=== PATIENT | female | born 2000 | race Caucasian/White ===

== ENCOUNTER 2024-03-14 17:00 | Day surgery (SDC) | payer OTHER ==
[2024-03-14 18:11] VITALS: BMI 41.0
[2024-03-14] MEDS: Ondansetron PF 4 MG/2 ML Vial IVP SCH (18:17)
[2024-03-14] MEDS: Dextrose 5%-Lactated Ringers 1,000 ML IV SCH (18:18)
== END 2024-03-14 19:30 | disposition home or self-care (01) ==
LOC: CSHLD/OP 17:00
PROVIDERS: ATTEND Family Medicine
DX: O21.2 Late vomiting of pregnancy (principal); O99.891 Other specified diseases and conditions complicating pregnancy; R19.7 Diarrhea, unspecified; Z79.82 Long term (current) use of aspirin; Z79.899 Other long term (current) drug therapy; Z3A.38 38 weeks gestation of pregnancy
CPT/HCPCS: 96360; 96374; 99282; J2405

== ENCOUNTER 2024-03-21 19:30 | Inpatient (IN) | payer MEDICAID, OTHER ==
[2024-03-21] MEDS ORDERED: Lidocaine 1% (PF) 30 ML VIAL SC PRN (20:29)
[2024-03-21] MEDS ORDERED: Misoprostol 200 MCG TAB PR PRN (20:29)
[2024-03-21] MEDS ORDERED: Acetaminophen 500 MG TAB PO PRN (20:29)
[2024-03-21] MEDS ORDERED: Carboprost 250 MCG/ML AMP IM PRN (20:29)
[2024-03-21] MEDS ORDERED: hydrALAZINE 20 MG/ML VIAL SLOW IVP PRN (20:29)
[2024-03-21] MEDS ORDERED: Tranexamic Acid 1,000 MG/10 ML VIAL IVP PRN (20:29)
[2024-03-21] MEDS ORDERED: Promethazine HCl 25 MG/ML VIAL IM PRN (20:29)
[2024-03-21] MEDS ORDERED: Diphenoxylate HCl/Atropine Tablet PO PRN (20:29)
[2024-03-21] MEDS ORDERED: Ondansetron PF 4 MG/2 ML Vial IVP PRN (20:29)
[2024-03-21] MEDS ORDERED: Methylergonovine 0.2 MG/ML VIAL IM PRN (20:29)
[2024-03-21 21:30] VITALS: BMI 41.0
[2024-03-21 21:55] LABS: Hematocrit 34.8 % (34.9-44.5); Hemoglobin 11.8 g/dL (12.0-15.5); Mean Corpuscular HGB CONC 33.9 g/dL (32.0-36.0); Mean Corpuscular Hemoglobin 26.9 pg (27.0-33.0); Mean Corpuscular Volume 79.5 fl (81.6-98.3); Mean Platelet Volume 10.5 fl (7.4-10.4); Platelet Count 192 10x3/uL (150-450); RBC Distribution Width 14.5 % (11.5-14.5); Red Blood Cell (RBC) Count 4.38 10x6/uL (3.90-5.03); White Blood Cell (WBC) Count 10.8 10x3/uL (3.5-10.5)
[2024-03-21] MEDS: Misoprostol 100 MCG TAB PO SCH (22:12)
[2024-03-21 22:33] LABS: HBsAg Index 0.21 S/CO (0-0.99); Hep B Surf Ag - L&D Non-Reactive S/CO (NonReactive)
[2024-03-21 23:38] LABS: Syphilis Antibody Index 25.75 S/CO (<1.00 Non-Reactive)
[2024-03-21 23:39] LABS: Syphilis Antibody INDETERMINATE (Nonreactive)
[2024-03-22] MEDS ORDERED: Misoprostol 100 MCG TAB ONE ×2 (08:23→13:01)
[2024-03-22] MEDS: fentaNYL 50 mcg/mL 1 mL Vial SLOW IVP PRN (09:20)
[2024-03-22] MEDS ORDERED: fentaNYL/Ropivacaine Epidural 100 ML ONE (09:27)
[2024-03-22] MEDS ORDERED: Promethazine HCl 25 MG/ML VIAL IM PRN (10:44)
[2024-03-22] MEDS ORDERED: diphenhydrAMINE 50 MG/ML VIAL IVP PRN (10:44)
[2024-03-22] MEDS ORDERED: Moisturizing Cream (Eucerin) 113 GM JAR TOP PRN (10:44)
[2024-03-22] MEDS ORDERED: Acetaminophen 325 MG TAB PO PRN (10:44)
[2024-03-22] MEDS ORDERED: ePHEDrine Sulfate 50 MG/10 ML VIAL SLOW IVP PRN (10:44)
[2024-03-22] MEDS ORDERED: Lactated Ringer's 500 ML IV PRN (10:44)
[2024-03-22] MEDS ORDERED: Ondansetron PF 4 MG/2 ML Vial IVP PRN (10:44)
[2024-03-22] MEDS ORDERED: Naloxone HCl 0.4 mg/ml Vial IVP PRN ×2 (10:44)
[2024-03-22] MEDS ORDERED: Communication Order-Pharmacy FS SCH (10:45)
[2024-03-22] MEDS: fentaNYL 2 mcg/Ropivacaine 0.2% Epidural 100 ML CADD EPIDURAL SCH (11:34)
[2024-03-22] MEDS: Lactated Ringer's 1,000 ML IV SCH (19:58)
[2024-03-23] MEDS: Oxytocin 30 units/NS 500 ML 500 ML IV SCH (05:24)
[2024-03-23] MEDS ORDERED: hydrALAZINE 20 MG/ML VIAL SLOW IVP PRN (10:44)
[2024-03-23] MEDS ORDERED: Promethazine HCl 25 MG/ML VIAL IM PRN (10:44)
[2024-03-23] MEDS ORDERED: diphenhydrAMINE 25 MG CAP PO PRN (10:44)
[2024-03-23] MEDS ORDERED: Oxytocin 30 units/NS 500 ML 500 ML IV SCH (10:44)
[2024-03-23] MEDS ORDERED: Ondansetron PF 4 MG/2 ML Vial IVP PRN (10:44)
[2024-03-23] MEDS ORDERED: Milk Of Magnesia 30 ML UDCUP PO PRN (10:44)
[2024-03-23] MEDS ORDERED: Lanolin Ointment 7 GM TUBE TOP PRN (10:44)
[2024-03-23] MEDS: Ibuprofen 800 MG TAB PO SCH (13:42)
[2024-03-23] MEDS: Benzocaine-Menthol 82.5 ML CAN TOP PRN (13:43)
[2024-03-23] MEDS: Ferrous Sulfate 325 MG TAB PO SCH (16:36)
[2024-03-23] MEDS: HYDROcodone/Acetaminophen 5/325 mg Tablet PO PRN (17:45)
[2024-03-23] MEDS: Docusate 100 MG CAP PO SCH (21:56)
[2024-03-23] MEDS: Witch Hazel-Glycerin 1 EACH JAR TOP PRN (21:59)
[2024-03-24] MEDS: Boostrix 0.5 ML (Tdap) VIAL (>/=7 yrs of age) IM ONE (07:28)
[2024-03-24] MEDS: Prenatal Vitamin 1 TAB PO SCH (08:49)
[2024-03-24] MEDS: Bisacodyl 10 MG SUPP PR PRN (11:50)
[2024-03-24] MEDS ORDERED: Bupivacaine 0.25% HCL 30 ML VIAL ONE (20:09)
[2024-03-25 08:34] VITALS: BP 135/86; TEMP 97.6
== END 2024-03-25 11:10 | disposition home or self-care (01) | DRG 807 ==
LOC: CSHLD 20:27 → CSHPP 03-23 11:55
PROVIDERS: ADMIT Family Medicine; ATTEND Family Medicine
PROC: 10E0XZZ Delivery of Products of Conception, External Approach (ICD-10-PCS; principal; 2024-03-23)
PROC: 0UQMXZZ Repair Vulva, External Approach (ICD-10-PCS; 2024-03-23)
PROC: 0UQGXZZ Repair Vagina, External Approach (ICD-10-PCS; 2024-03-23)
DX: O98.12 Syphilis complicating childbirth (principal); Z37.0 Single live birth; A53.9 Syphilis, unspecified; Z3A.39 39 weeks gestation of pregnancy; O70.0 First degree perineal laceration during delivery
CPT/HCPCS: 36415; 51702; 85027; 85461; 86593; 86780; 86850; 86900; 86901; 87340; 90384; 96372; J0665; J2590; J3010; J7120